=== PATIENT | female | born 1955 ===

== ENCOUNTER 2020-12-25 10:45 | Inpatient (IN) | payer OTHER ==
[~2020-12-25] VITALS: Ht 154.9 cm; Wt 77.1 kg
[2020-12-25] MEDS ORDERED: SYNTHROID88 MCG PO (13:04)
[2020-12-31] MEDS ORDERED: GLYCOPYRROLATE1 MG (13:04)
[2020-12-31] MEDS ORDERED: ALENDRONATE SOD70 MG (13:05)
[2020-12-31] MEDS ORDERED: FAMOTIDINE40 MG (13:05)
[2020-12-31] MEDS ORDERED: OMEPRAZOLE20 MG (13:05)
[2020-12-31] MEDS ORDERED: BENADRYL25 MG (13:05)
[2020-12-31] MEDS ORDERED: NABUMETONE500 MG (13:06)
[2020-12-31] MEDS ORDERED: MESALAMINE DR400 MG (13:06)
[2020-12-31] MEDS ORDERED: MELOXICAM15 MG (13:06)
[2020-12-31] MEDS ORDERED: VOLTAREN ARTHRI20 GM (13:07)
[2020-12-31] MEDS ORDERED: CLOTRIMAZOLE28 GM (13:07)
[2020-12-31] MEDS ORDERED: TRIPLE ANTIBIOT14 GM (13:07)
== END 2021-01-03 14:54 | disposition home or self-care (01) | DRG 330 ==
LOC: SURH 12-31 05:10 → O/R 12-31 05:10 → SURH 12-31 10:45
PROVIDERS: ADMIT Colon & Rectal Surgery; ATTEND Colon & Rectal Surgery
PROC: 0DTN4ZZ Resection of Sigmoid Colon, Percutaneous Endoscopic Approach (ICD-10-PCS; 2020-12-31)
PROC: 0DQL4ZZ Repair Transverse Colon, Percutaneous Endoscopic Approach (ICD-10-PCS; 2020-12-31)
PROC: 0DJD8ZZ Inspection of Lower Intestinal Tract, Via Natural or Artificial Opening Endoscopic (ICD-10-PCS; 2020-12-31)
PROC: 3E0F7SF Introduction of Other Gas into Respiratory Tract, Via Natural or Artificial Opening (ICD-10-PCS; 2020-12-31)
PROC: 0DTP4ZZ Resection of Rectum, Percutaneous Endoscopic Approach (ICD-10-PCS; principal; 2020-12-31 15:00)
DX: K57.32 Diverticulitis of large intestine without perforation or abscess without bleeding (principal); K92.1 Melena; S36.591A Other injury of transverse colon, initial encounter; Y83.6 Removal of other organ (partial) (total) as the cause of abnormal reaction of the patient, or of later complication, without mention of misadventure at the time of the procedure; Y92.234 Operating room of hospital as the place of occurrence of the external cause; Y82.8 Other medical devices associated with adverse incidents

== ENCOUNTER 2020-12-27 07:30 | Outpatient (CLI) | payer OTHER ==
[~2020-12-27 07:30] MED LIST: SYNTHROID88 MCG PO
== END 2020-12-27 07:32 | disposition home or self-care (01) ==
LOC: NUCLEAR 07:30
PROVIDERS: ATTEND Internal Medicine Geriatric Medicine
DX: I87.003 Postthrombotic syndrome without complications of bilateral lower extremity (principal)